=== PATIENT | male | born 1990 | race Caucasian/White ===

== ENCOUNTER 2017-11-18 10:25 | Emergency (ER) | payer OTHER ==
[2017-11-18 11:15] LABS: KETONE, URINE AUTO RFX NEGATIVE (NEGATIVE); LEUKOCYTE ESTERASE UR AUTO RFX NEGATIVE (NEGATIVE); NITRITE, URINE AUTO RFX NEGATIVE (NEGATIVE); RBC, URINE AUTO RFX TNTC /HPF (0-3); SPECIFIC GRAVITY UR AUTO RFX 1.023 (1.002-1.035); SQUAM EPITHELIAL CELL UR AURFX 0 /HPF (0-6); WBC, URINE AUTO RFX 1 /HPF (0-3)
== END 2017-11-18 13:22 | disposition home or self-care (01) ==
LOC: M ED 10:25
DX: I88.0 Nonspecific mesenteric lymphadenitis (principal); R39.11 Hesitancy of micturition
CPT/HCPCS: 74176

== ENCOUNTER 2018-04-15 08:01 | Emergency (ER) | payer OTHER, SELFPAY | END 2018-04-15 09:11 | disposition home or self-care (01) | LOC: M ED 08:01 | DX: M54.32 Sciatica, left side (principal); K51.90 Ulcerative colitis, unspecified, without complications; R79.89 Other specified abnormal findings of blood chemistry | CPT/HCPCS: 99282 ==